=== PATIENT | male | born 1995 | race Caucasian/White ===

== ENCOUNTER 2019-02-15 10:55 | Emergency (ER) | payer OTHER ==
[2019-02-15 11:08] VITALS: BP 132/89
--- NOTE | 2019-02-15 12:23 | UC ---
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 He was able to finish the game after sitting out for a few minutes. He denies any difficulty breathing. He just wanted it checked because it still mildly sore however has not worsened. He denies any hematuria. He denies any head injury or neck pain. - History of Current Complaint Chief Complaint: UCGeneralIllness Stated Complaint: LOWER RT SIDE BACK PAIN Time Seen by Provider: 02/15/19 11:16 Hx Obtained From: Patient Onset/Duration: Sudden Onset Onset Of Pain: Immediate Severity Initially: Moderate Severity Currently: Mild Pain Intensity: 5 Mechanism Of Injury: Direct Blow - Direct blow into another football player. Aggravating Factor(s): Movement - Occasionally has right muscle soreness with movement. Alleviating Factor(s): Rest Associated Signs And Symptoms: Negative: Loss Of Consciousness, Ecchymosis, Swelling - Allergies/Home Medications Allergies/Adverse Reactions: Allergies Allergy/AdvReac Type Severity Reaction Status Date / Time No Known Allergies Allergy Verified 02/15/19 11:04 Home Medications: Home Medications NK [No Home Medications Reported] 02/15/19 [History Confirmed 02/15/19] PMH/Surg Hx/FS Hx/Imm Hx Previously Healthy: Yes - Surgical History Surgical History: Yes Surgery Procedure, Year, and Place: T&A - Family History Known Family History: Positive: None - Social History Alcohol Use: Weekly Substance Use Type: None Smoking Status (MU): Never Smoked Tobacco - Immunization History Vaccination Up to Date: Yes Review of Systems All Other Systems Reviewed And Are Negative: Yes Skin: Negative: Bruising Musculoskeletal: Positive: Other: - Very mild right sided rib soreness with very firm palpation or twisting. Is Patient Immunocompromised?: No Physical Exam Triage Information Reviewed: Yes Appearance: Well-Appearing, No Pain Distress, Well-Nourished Vital Signs: Initial Vital Signs Temp 98.4 F 02/15/19 11:04 Pulse 73 02/15/19 11:04 Resp 16 02/15/19 11:04 BP 132/89 02/15/19 11:04 Pulse Ox 100 02/15/19 11:04 Vital Signs Reviewed: Yes Neck: Positive: Nontender - C-spine nontender Respiratory: Positive: Chest non-tender - I am really unable to elicit any pain on firm palpation of the chest and ribs areas. There is no bruising, erythema, deformity or crepitus. The patient has a difficult time finding where on the right mid lateral ribs is the sore area., Lungs clear, Normal breath sounds, No respiratory distress, No accessory muscle use Cardiovascular: Positive: RRR, No Murmur, Pulses Normal, Brisk Capillary Refill Abdomen Description: Positive: Nontender, No Organomegaly, Soft. Negative: CVA Tenderness (R), CVA Tenderness (L), Distended, Guarding, Hepatomegaly, McBurney' s Point Tenderness, Splenomegaly Bowel Sounds: Positive: Present Musculoskeletal Exam: Normal Neurological Exam: Normal Psychological Exam: Normal Skin Exam: Normal Minor Trauma Course/Dx - Course Course Of Treatment: Chest x-ray: Negative The patient is comfortable here and moves without difficulty. I feel he just has a minor muscle strain at this point. He is to follow-up with primary care provider as needed. - Differential Dx/Diagnosis Provider Diagnosis: Muscle strain of chest wall Discharge ED - Sign-Out/Discharge Documenting (check all that apply): Patient Departure All imaging exams completed and their final reports reviewed: Yes - Discharge Plan Condition: Good Disposition: HOME Patient Education Materials: Muscle Strain (DC) Referrals: Trini Aragon MD [Primary Care Provider] - Additional Instructions: Take Tylenol every 4 hours for pain and may alternate with Motrin every 8 hours. Apply heat to the sore areas. Definite follow-up with your primary care provider if no improvement in 4 or 5 days. - Billing Disposition and Condition Condition: GOOD Disposition: Home
== END 2019-02-15 12:25 | disposition home or self-care (01) ==
LOC: UCCORT 10:55
DX: S29.011A Strain of muscle and tendon of front wall of thorax, initial encounter (principal); W51.XXXA Accidental striking against or bumped into by another person, initial encounter; Y93.61 Activity, american tackle football; Y92.9 Unspecified place or not applicable
CPT/HCPCS: 71046; 81003; 99211; G0463